=== PATIENT | female | born 1940 | race Caucasian/White ===

== ENCOUNTER 2017-07-05 17:14 | Observation (INO) | payer OTHER, MEDICARE ==
[~2017-07-05] VITALS: Ht 157.5 cm; Wt 100.9 kg
[~2017-07-05 17:14] MED LIST: AMARYL2 MG PO; AMARYL4 MG PO; ATENOLOL100 MG PO; ATORVASTATIN CA20 MG PO; CIPROFLOXACIN250 MG PO; CYCLOBENZAPRINE5 MG PO; DICYCLOMINE HCL10 MG PO; ELIQUIS5 MG PO; ERGOCALCIF50000 UNIT PO; HYDROCODON-ACE1 EAC7 PO; JANUVIA25 M1 PO; JANUVIA25 MG PO; LEVOTHYROXINE112 MCG PO; LIPITOR20 MG PO; LISINOPRIL-HCT1 EAC3 PO; LOVENOX40 MG/0.4 SC; LYRICA100 MG PO; LYRICA75 MG PO; MEDROL DOSEPAK4 MG PO; OXYBUTYNIN CHLOR5 M1 PO; PERCOCET 5/31 TABLET PO; PRILOSEC20 MG PO; PROAIR HFA8.5 GM IH; PROZAC20 MG PO; SENNA PLUS TAB1 EACH PO; SKELAXIN800 MG PO; SYNTHROID112 MCG PO; TAMIFLU30 MG PO; TENORMIN100 MG PO; TRAMADOL HCL50 MG PO; ULTRAM50 MG PO; XARELTO20 MG PO; ZESTORETIC 20-1 EAC2 PO
[2017-07-05 18:18] LABS: CHLORIDE 109 mEq/L (99-109); POTASSIUM 4.6 mEq/L (3.7-5.4); SODIUM 141 mEq/L (136-147)
[2017-07-05 18:21] LABS: GLUCOSE 136 mg/dL (70-99)
[2017-07-05 18:22] LABS: ANION GAP 8 MEQ/L (2-14)
[2017-07-05 18:23] LABS: TOTAL BILIRUBIN 0.4 mg/dL (0.0-1.0)
[2017-07-05 18:24] LABS: ALKALINE PHOSPHATASE 72 IU/L (3-129); GFR ESTIMATE (CALCULATED) 29 mL/min/
[2017-07-05 18:28] LABS: UREA NITROGEN (BUN) 36 mg/dL (9-23)
[2017-07-05 18:33] LABS: TROP-I INTERPRETATION NEGATIVE; TROPONIN-I 0.01 ng/mL (0.0-0.30)
[2017-07-05 18:35] LABS: BASOPHIL COUNT 0.1 K/uL (0-0.1); EOSINOPHIL (%) 5.6 % (0-5); EOSINOPHIL COUNT 0.4 K/uL (0-0.3); HEMATOCRIT 37.5 % (36.0-46.0); IMMATURE GRANULOCYTE (%) 0.4 % (0.0-0.7); INSTRUMENT ABS NEUTROPHIL CT 3.4 K/uL; LYMPHOCYTE COUNT 2.4 K/uL (1.0-2.8); MCH 29.6 PG (29.0-34.0); MCHC 32.5 G/DL (30.0-36.0); MEAN PLAT.VOLUME 11.9 uM^3 (9.5-12.4); MONOCYTE (%) 9.3 % (3-12); MONOCYTE COUNT 0.7 K/uL (0-0.8); NEUTROPHIL (%) 48.8 % (45-76); NEUTROPHIL COUNT 3.4 K/uL (1.8-6.4); PLATELET COUNT 241 K/uL (156-360); RBC DIS.WIDTH-CV 13.9 % (11.8-14.6); RBC DIS.WIDTH-SD 46.8 % (39-53); RED BLOOD COUNT 4.12 M/uL (3.80-5.20)
[2017-07-05 21:47] LABS: CHLORIDE 112 mEq/L (99-109); POTASSIUM 4.4 mEq/L (3.7-5.4); SODIUM 143 mEq/L (136-147)
[2017-07-05 21:50] LABS: ANION GAP 8 MEQ/L (2-14)
[2017-07-05 21:52] LABS: GFR ESTIMATE (CALCULATED) 31 mL/min/
[2017-07-05 21:53] LABS: UREA NITROGEN (BUN) 34 mg/dL (9-23)
[2017-07-05 21:54] LABS: GLUCOSE 86 mg/dL (70-99)
[2017-07-05] MEDS ORDERED: ALDACTONE50 MG PO (22:28)
[2017-07-05] MEDS ORDERED: VITAMIN D33000 UNIT PO (22:28)
[2017-07-05] MEDS ORDERED: LO-DOSE ASPIRIN81 M1 PO (22:28)
[2017-07-05] MEDS ORDERED: AMLODIPINE BESYL5 MG PO (22:28)
[2017-07-05] MEDS ORDERED: LASIX20 MG PO (22:29)
[2017-07-05] MEDS ORDERED: BENICAR40 MG PO (22:29)
[2017-07-05] MEDS ORDERED: METOPROLOL SUC100 MG PO (22:29)
[2017-07-05] MEDS ORDERED: FLONASE16 G1 BOTH NARES (22:29)
[2017-07-05] MEDS ORDERED: ATORVASTATIN CA20 MG PO (22:29)
[2017-07-06 01:15] VITALS: BP 149/65
[2017-07-06 03:13] VITALS: BP 133/63
[2017-07-06 05:26] LABS: BASOPHIL COUNT 0.1 K/uL (0-0.1); EOSINOPHIL (%) 7.4 % (0-5); EOSINOPHIL COUNT 0.5 K/uL (0-0.3); HEMATOCRIT 34.6 % (36.0-46.0); IMMATURE GRANULOCYTE (%) 0.2 % (0.0-0.7); INSTRUMENT ABS NEUTROPHIL CT 2.2 K/uL; MCH 28.8 PG (29.0-34.0); MCHC 31.8 G/DL (30.0-36.0); MCV 90.6 FL (83-99); MEAN PLAT.VOLUME 11.4 uM^3 (9.5-12.4); MONOCYTE (%) 11.6 % (3-12); MONOCYTE COUNT 0.8 K/uL (0-0.8); NEUTROPHIL (%) 33.7 % (45-76); NEUTROPHIL COUNT 2.2 K/uL (1.8-6.4); PLATELET COUNT 207 K/uL (156-360); RBC DIS.WIDTH-SD 46.6 % (39-53); RED BLOOD COUNT 3.82 M/uL (3.80-5.20); WHITE BLOOD COUNT 6.5 K/uL (4.1-10.2)
[2017-07-06 05:53] LABS: ANION GAP 5 MEQ/L (2-14); CHLORIDE 109 MEQ/L (99-109); GFR ESTIMATE (CALCULATED) 36 mL/min/; POTASSIUM 4.6 MEQ/L (3.7-5.4); SAMPLE HEMOLYSIS CHECK 0; SAMPLE ICTERIC CHECK 0; SAMPLE LIPEMIA CHECK 0; SODIUM 142 MEQ/L (136-147); UREA NITROGEN (BUN) 37 mg/dL (9-23)
[2017-07-06 05:54] LABS: GLUCOSE 112 mg/dL (70-99)
[2017-07-06 07:08] VITALS: BP 132/60
[2017-07-06] MEDS ORDERED: SPIRONOLACTONE25 MG PO (13:29)
== END 2017-07-06 15:26 ==
LOC: EME 17:14 → EDOF 22:59 → ENRESERV 23:03 → 5WEST 07-06 01:01
PROVIDERS: Emergency Medicine; Physician Assistant Medical
DX: I95.2 Hypotension due to drugs (principal); T46.5X5A Adverse effect of other antihypertensive drugs, initial encounter; I12.9 Hypertensive chronic kidney disease with stage 1 through stage 4 chronic kidney disease, or unspecified chronic kidney disease; N18.3 Chronic kidney disease, stage 3 (moderate); E86.0 Dehydration; N17.9 Acute kidney failure, unspecified; R01.1 Cardiac murmur, unspecified; Z86.711 Personal history of pulmonary embolism; Z86.718 Personal history of other venous thrombosis and embolism; G47.33 Obstructive sleep apnea (adult) (pediatric); K58.9 Irritable bowel syndrome, unspecified; E78.5 Hyperlipidemia, unspecified; E11.22 Type 2 diabetes mellitus with diabetic chronic kidney disease; E03.9 Hypothyroidism, unspecified; F41.9 Anxiety disorder, unspecified; F32.9 Major depressive disorder, single episode, unspecified; M79.7 Fibromyalgia; D64.9 Anemia, unspecified; E55.9 Vitamin D deficiency, unspecified; Z96.653 Presence of artificial knee joint, bilateral; Z96.642 Presence of left artificial hip joint; Z90.49 Acquired absence of other specified parts of digestive tract; Z90.710 Acquired absence of both cervix and uterus; Z98.1 Arthrodesis status; Z79.82 Long term (current) use of aspirin; G89.29 Other chronic pain; M54.5 Low back pain; E66.9 Obesity, unspecified; Z68.41 Body mass index [BMI] 40.0-44.9, adult; Z84.1 Family history of disorders of kidney and ureter; Z83.3 Family history of diabetes mellitus; Z88.8 Allergy status to other drugs, medicaments and biological substances; Z88.6 Allergy status to analgesic agent; Z88.0 Allergy status to penicillin
CPT/HCPCS: 71010; 80048; 80048 91; 80053; 81003; 84484; 85025; 93005; G0378; J1644; J7030

== ENCOUNTER 2017-11-27 08:16 | Observation (INO) | payer OTHER, MEDICARE ==
[~2017-11-27] VITALS: Ht 157.5 cm; Wt 104.5 kg
[~2017-11-27 08:16] MED LIST changes: +ALDACTONE50 MG PO; +AMLODIPINE BESYL5 MG PO; +BENICAR40 MG PO; +FLONASE16 G1 BOTH NARES; +LASIX20 MG PO; +LO-DOSE ASPIRIN81 M1 PO; +METOPROLOL SUC100 MG PO; +SPIRONOLACTONE25 MG PO; +VITAMIN D33000 UNIT PO
[2017-11-27] MEDS ORDERED: TYLENOL EXTRA500 MG PO (08:42)
[2017-11-27] MEDS ORDERED: B-COMPLEX-VITA1 EACH PO (08:43)
[2017-11-27] MEDS ORDERED: ZYRTEC10 M3 PO (08:44)
[2017-11-27] MEDS ORDERED: ERGOCALCIF50000 UNIT PO (08:44)
[2017-11-27] MEDS ORDERED: ALDACTONE25 MG PO (08:45)
[2017-11-27] MEDS ORDERED: NEOMYCIN-POLY-7.5 ML BOTH EYES (08:47)
[2017-11-27 09:06] LABS: BASOPHIL COUNT 0.1 K/uL (0-0.1); EOSINOPHIL COUNT 0.3 K/uL (0-0.3); HEMATOCRIT 33.4 % (36.0-46.0); HEMOGLOBIN 10.9 G/DL (11.9-15.5); IMMATURE GRANULOCYTE (%) 0.3 % (0.0-0.7); LYMPHOCYTE (%) 33.5 % (15-42); LYMPHOCYTE COUNT 2.3 K/uL (1.0-2.8); MCHC 32.6 G/DL (30.0-36.0); MCV 94.9 FL (83-99); MONOCYTE (%) 10.2 % (3-12); MONOCYTE COUNT 0.7 K/uL (0-0.8); NEUTROPHIL COUNT 3.4 K/uL (1.8-6.4); PLATELET COUNT 211 K/uL (156-360); RBC DIS.WIDTH-CV 13.9 % (11.8-14.6); RBC DIS.WIDTH-SD 48.1 % (39-53); RED BLOOD COUNT 3.52 M/uL (3.80-5.20); WHITE BLOOD COUNT 6.9 K/uL (4.1-10.2)
[2017-11-27 09:16] LABS: CHLORIDE 112 mEq/L (99-109); SODIUM 139 mEq/L (136-147)
[2017-11-27 09:17] LABS: GLUCOSE 125 mg/dL (70-99)
[2017-11-27 09:21] LABS: CREATININE 2.2 mg/dL (0.6-1.3); GFR ESTIMATE (CALCULATED) 23 mL/min/
[2017-11-27 09:22] LABS: UREA NITROGEN (BUN) 47 mg/dL (9-23)
[2017-11-27 11:51] LABS: BILIRUBIN NEGATIVE; BLOOD NEGATIVE; COLOR YELLOW ((YELLOW)); GLUCOSE (STRIP) 50; KETONES NEGATIVE; LEUKOCYTES NEGATIVE; NITRITE NEGATIVE; PROTEIN (STRIP) NEGATIVE; UCUL ADDED? NO; UROBILINOGEN 0.2 MG/DL (0.2-1.0)
[2017-11-27 11:54] VITALS: BP 150/66
[2017-11-27 11:55] LABS: APPEARANCE SL.HAZY ((CLEAR))
[2017-11-27 12:07] LABS: BACTERIA 2+ /HPF; EPITHELIAL CELLS RARE /HPF; HYALINE CASTS 0-5 /LPF; MUCUS TRACE /LPF; RED BLOOD CELLS 0-5 /HPF (0-5); WHITE BLOOD CELLS 0-5 /HPF (0-5)
[2017-11-27 12:59] LABS: HEMOGLOBIN A1c (GLYCOHEMOGLOB) 6.5 % (Below 5.7)
[2017-11-27 13:21] LABS: CHLORIDE 112 MEQ/L (99-109); CREATININE 1.9 MG/DL (0.6-1.3); GFR ESTIMATE (CALCULATED) 27 mL/min/; GLUCOSE 109 mg/dL (70-99); POTASSIUM 5.5 MEQ/L (3.7-5.4); SODIUM 141 MEQ/L (136-147); UREA NITROGEN (BUN) 44 mg/dL (9-23)
[2017-11-27 16:37] VITALS: BP 140/65
[2017-11-27 23:16] VITALS: BP 114/56
[2017-11-28 03:51] VITALS: BP 111/51
[2017-11-28 05:36] LABS: ALBUMIN 3.2 G/DL (3.2-4.8); CHLORIDE 114 MEQ/L (99-109); CREATININE 1.7 MG/DL (0.6-1.3); GFR ESTIMATE (CALCULATED) 31 mL/min/; GLUCOSE 114 mg/dL (70-99); PHOSPHORUS 3.7 mg/dL (2.5-4.9); POTASSIUM 5.1 MEQ/L (3.7-5.4); SODIUM 141 MEQ/L (136-147); UREA NITROGEN (BUN) 40 mg/dL (9-23)
[2017-11-28 07:00] VITALS: BP 132/60
[2017-11-28 11:49] VITALS: BP 155/68
[2017-11-28] MEDS ORDERED: AMLODIPINE BESYL5 MG PO (14:00)
== END 2017-11-28 15:46 | disposition home or self-care (01) ==
LOC: EME 08:16 → 4SOUTH 10:02 → EDOF 10:02 → ENRESERV 10:09 → EDOF 10:49 → 4SOUTH 11:50
PROVIDERS: Emergency Medicine; Hospitalist; Nurse Practitioner Adult Health
DX: N17.9 Acute kidney failure, unspecified (principal); E87.5 Hyperkalemia; I12.9 Hypertensive chronic kidney disease with stage 1 through stage 4 chronic kidney disease, or unspecified chronic kidney disease; N18.3 Chronic kidney disease, stage 3 (moderate); E11.22 Type 2 diabetes mellitus with diabetic chronic kidney disease; T50.2X5A Adverse effect of carbonic-anhydrase inhibitors, benzothiadiazides and other diuretics, initial encounter; T50.0X5A Adverse effect of mineralocorticoids and their antagonists, initial encounter; I25.10 Atherosclerotic heart disease of native coronary artery without angina pectoris; I27.20 Pulmonary hypertension, unspecified; G47.33 Obstructive sleep apnea (adult) (pediatric); K21.9 Gastro-esophageal reflux disease without esophagitis; K58.9 Irritable bowel syndrome, unspecified; D64.9 Anemia, unspecified; F41.9 Anxiety disorder, unspecified; M79.7 Fibromyalgia; Z90.49 Acquired absence of other specified parts of digestive tract; Z95.5 Presence of coronary angioplasty implant and graft; Z82.49 Family history of ischemic heart disease and other diseases of the circulatory system; Z83.3 Family history of diabetes mellitus; Z79.82 Long term (current) use of aspirin; Z88.0 Allergy status to penicillin; Z88.6 Allergy status to analgesic agent; N25.81 Secondary hyperparathyroidism of renal origin; E55.9 Vitamin D deficiency, unspecified; M19.90 Unspecified osteoarthritis, unspecified site; E78.5 Hyperlipidemia, unspecified; E03.9 Hypothyroidism, unspecified; Z96.653 Presence of artificial knee joint, bilateral; Z90.710 Acquired absence of both cervix and uterus
CPT/HCPCS: 71045; 76770; 80048; 80048 91; 80069; 81003; 82570; 82948; 83036; 84156; 85025; 93005; 94660; 99281; 99285; G0378; J7030